=== PATIENT | female | born 1990 ===

== ENCOUNTER 2025-01-20 17:12 | Emergency (ER) | payer SELFPAY ==
[2025-01-20 17:25] VITALS: BP 113/78; PULSE 87; RESP 16; TEMP 37.2; O2SAT 97
[2025-01-20 17:26] VITALS: BMI 35.3
[2025-01-20 17:30] VITALS: PULSE 84; RESP 16; O2SAT 98
--- NOTE | 2025-01-20 17:46 | PC.NURSE ---
PT CALLED BACK TO HAVE VITALS TAKEN AND TO SEE PROVIDER. NO RESPONSE FROM LOBBY OR FROM OUTSIDE X1 @[phone]
--- NOTE | 2025-01-20 18:22 | PC.NURSE ---
PT CALLED BACK. NO RESPONSE X2 @[phone]. CHECKED LOBBY AND OUTSIDE. NO RESPONSE
== END 2025-01-20 18:23 | disposition left against medical advice (07) ==
PROVIDERS: Emergency Provider Emergency Medicine
DX: Z53.21 Procedure and treatment not carried out due to patient leaving prior to being seen by health care provider (principal)
CPT/HCPCS: 99281